=== PATIENT | female | born 1960 | race Caucasian/White ===

== ENCOUNTER → 2017-06-29 | Outpatient (CLI) | payer BC, OTHER ==
[~2017-06-29] MED LIST: ASPIRIN E.C. 8181 MG PO; NORCO 325 MG-51 TAB PO; ZANTAC 150MG T150 MG PO; ZESTRIL 20MG TA20 MG PO; [UNRECOGNIZED DRUG - OTHER] PO
== END ==
LOC: COL.RAD 10:09
DX: R10.11 Right upper quadrant pain (principal)

== ENCOUNTER → 2017-07-17 | Outpatient (CLI) | payer BC, OTHER | LOC: COL.RAD 08:10 | DX: R10.11 Right upper quadrant pain (principal) | CPT/HCPCS: A9537 ==

== ENCOUNTER 2017-08-11 09:30 | Day surgery (SDC) | payer BC, OTHER ==
[~2017-08-11] VITALS: Ht 165.1 cm; Wt 98.8 kg
[2017-08-11] VITALS (10 sets, daily range): BP systolic 100–126; BP diastolic 51–82; PULSE 43–68; TEMP 97.2–98.9
[2017-08-11] MEDS ORDERED: PRINIVIL20 MG PO (10:35)
[2017-08-11] MEDS ORDERED: TOPAMAX50 MG PO (10:36)
[2017-08-11] MEDS ORDERED: PREMPRO 0.3 MG-1 TAB PO (10:36)
[2017-08-11] MEDS ORDERED: ZANTAC 150MG T150 MG PO (10:37)
[2017-08-11] MEDS ORDERED: NORCO 325 MG-7.1 TAB PO (11:59)
== END 2017-08-11 16:18 | disposition home or self-care (01) ==
LOC: SDCO 09:30
DX: K81.1 Chronic cholecystitis (principal); I10 Essential (primary) hypertension; K21.9 Gastro-esophageal reflux disease without esophagitis; E78.5 Hyperlipidemia, unspecified; F41.9 Anxiety disorder, unspecified; G43.909 Migraine, unspecified, not intractable, without status migrainosus; E78.00 Pure hypercholesterolemia, unspecified
CPT/HCPCS: J0690; J1100; J1885; J2405; J2704; J2710; J3010; J7120

== ENCOUNTER → 2017-08-28 | Outpatient (REF) ==
[~2017-08-28] MED LIST changes: +NORCO 325 MG-7.1 TAB PO; +PREMPRO 0.3 MG-1 TAB PO; +PRINIVIL20 MG PO; +TOPAMAX50 MG PO
== END ==
LOC: WSOH 10:57
DX: Z02.89 Encounter for other administrative examinations (principal)

== ENCOUNTER → 2017-12-04 | Outpatient (CLI) | payer BC, OTHER | LOC: COL.RAD 11:12 | DX: R10.31 Right lower quadrant pain (principal) ==

== ENCOUNTER → 2023-01-04 | Outpatient (CLI) | payer OTHER | LOC: COL.RAD 14:47 | DX: J32.0 Chronic maxillary sinusitis (principal) ==

== ENCOUNTER 2024-06-02 08:21 | Emergency (ER) | payer OTHER ==
[~2024-06-02] VITALS: Ht 165.1 cm; Wt 94.1 kg
[2024-06-02] MEDS ORDERED: PAXLOVID CO-PA1 EACH PO (10:30)
[2024-06-02] MEDS ORDERED: PAXLOVID 150-11 EACH PO (10:37)
[2024-06-02 10:40] VITALS: BP 125/75; PULSE 82; TEMP 98.2
== END 2024-06-02 10:43 | disposition home or self-care (01) ==
LOC: COL.ER 08:21
DX: U07.1 COVID-19 (principal); J02.9 Acute pharyngitis, unspecified; R05.9 Cough, unspecified; R09.81 Nasal congestion; R50.9 Fever, unspecified; Z91.040 Latex allergy status; Z73.0 Burn-out